=== PATIENT | male | born 2000 | race Caucasian/White ===

== ENCOUNTER → 2020-08-14 | Emergency (ER) | payer OTHER ==
[~2020-08-14] VITALS: Ht 180.3 cm; Wt 83.9 kg
== END | disposition left against medical advice (07) ==
LOC: ER 13:44
DX: Z53.20 Procedure and treatment not carried out because of patient's decision for unspecified reasons (principal)

== ENCOUNTER 2023-05-17 19:28 | Emergency (ER) | payer OTHER ==
[~2023-05-17] VITALS: Ht 177.8 cm; Wt 81.6 kg
== END 2023-05-17 20:59 | disposition home or self-care (01) ==
LOC: ER 19:28
DX: S61.421A Laceration with foreign body of right hand, initial encounter (principal); W25.XXXA Contact with sharp glass, initial encounter; Y93.89 Activity, other specified; Y92.238 Other place in hospital as the place of occurrence of the external cause

== ENCOUNTER 2024-06-20 12:46 | Emergency (ER) | payer OTHER ==
[~2024-06-20] VITALS: Ht 177.8 cm; Wt 83.9 kg
[2024-06-20] MEDS ORDERED: hydrOXYzine PAMOATE 50 MG CAPSULE PO STA (13:31)
[2024-06-20] MEDS ORDERED: hydrOXYzine PAMOATE 50 MG CAPSULE PO ONE (13:55)
== END 2024-06-20 15:18 | disposition home or self-care (01) ==
LOC: ER 12:46
DX: R00.2 Palpitations (principal); F41.9 Anxiety disorder, unspecified

== ENCOUNTER 2024-07-04 20:30 | Emergency (ER) | payer OTHER ==
[~2024-07-04] VITALS: Ht 177.8 cm; Wt 81.6 kg
[2024-07-04] MEDS ORDERED: HYDROGEN PEROXIDE 473 ML BOTTLE TOP ONE (20:47)
[2024-07-04] MEDS ORDERED: POVIDONE-IODINE 118 ML BOTT TOP ONE (20:47)
== END 2024-07-04 23:51 | disposition home or self-care (01) ==
LOC: ER 20:31
DX: S50.871A Other superficial bite of right forearm, initial encounter (principal); W54.0XXA Bitten by dog, initial encounter; Y93.89 Activity, other specified; Y92.89 Other specified places as the place of occurrence of the external cause; Z88.6 Allergy status to analgesic agent